=== PATIENT | male | born 1990 | race Caucasian/White ===

== ENCOUNTER 2017-11-09 21:45 | Emergency (ER) | payer SELFPAY ==
[~2017-11-09] VITALS: Ht 172.7 cm; Wt 82.5 kg
[2017-11-09 22:37] VITALS: Ht 172.7 cm; Wt 82.5 kg
[2017-11-10 00:21] VITALS: BP 130/74
== END 2017-11-10 00:21 | disposition home or self-care (01) ==
LOC: ED 21:45
DX: S46.912A Strain of unspecified muscle, fascia and tendon at shoulder and upper arm level, left arm, initial encounter (principal); W18.30XA Fall on same level, unspecified, initial encounter; Y93.89 Activity, other specified; Y92.89 Other specified places as the place of occurrence of the external cause; Y99.8 Other external cause status

== ENCOUNTER 2018-01-02 23:16 | Emergency (ER) | payer SELFPAY ==
[~2018-01-02] VITALS: Ht 172.7 cm; Wt 78.5 kg
[2018-01-03 00:55] VITALS: BP 132/68
== END 2018-01-03 00:55 | disposition home or self-care (01) ==
LOC: ED 23:16
DX: R53.1 Weakness (principal); R51 Headache; R11.0 Nausea; R42 Dizziness and giddiness
CPT/HCPCS: 82962; Q0162